=== PATIENT | male | born 1965 | race Caucasian/White ===

== ENCOUNTER 2017-09-26 20:46 | Inpatient (IN) | payer OTHER ==
[2017-09-26] MEDS ORDERED: ONDANSETRON HCL INJ/PF 4 MG/2 ML SDV IV ONE (22:21)
[2017-09-26] MEDS ORDERED: NORMAL SALINE 1000 ML 1,000 ML IV ONE (22:21)
--- NOTE | 2017-09-26 22:23 | ER Document Report ---
ED General - General Chief Complaint: Abdominal Pain Stated Complaint: ABDOMINAL PAIN Time Seen by Provider: 09/26/17 22:08 Notes: 52-year-old male with a history of total colectomy and permanent colostomy and history of anemia present with crampy abdominal pain "I think my capsule endoscopy is hung up" he is passing gas into his back but less than usual, and the capsule was swallowed on Wednesday. He normally passes the 3 Days Because He Has Had This before. He Denies Bleeding but Is Nauseous and Does Not Want to Eat. TRAVEL OUTSIDE OF THE [place] IN LAST 30 DAYS: No - Related Data Allergies/Adverse Reactions: codeine [Codeine] Adverse Reaction (Verified 01/24/15 17:51) Past Medical History - Social History Smoking Status: Never Smoker Family History: Reviewed & Not Pertinent Malignancy Medical History: Reports Hx Colorectal Cancer, Reports Hx Prostate Cancer Past Surgical History: Reports: Hx Rectal Surgery Review of Systems - Review of Systems Notes: REVIEW OF SYSTEMS GEN: Denies fever, chills, weight loss ENT: Denies sore throat, nasal discharge, ear pain EYES: Denies blurry vision, eye pain, discharge CV: Denies chest pain, palpitations, edema RESP: Denies cough, shortness of breath, wheezing GI: Hymenal pain MSK: Denies joint pain/swelling, edema, SKIN: Denies rash, skin lesions LYMPH: Denies swollen glands/lymph nodes NEURO: Denies headache, focal weakness or numbness, dizziness PSYCH: Denies depression, suicidal or homicidal ideation PHYSICAL EXAMINATION General: No acute distress, well-nourished Head: Atraumatic, normocephalic ENT: Mouth normal, oropharynx moist, no exudates or tonsillar enlargement Eyes: Conjunctiva normal, pupils equal, lids normal Neck: No JVD, supple, no guarding CVS: Normal rate, regular rhythm, no murmurs Resp: No resp distress, equal and normal breath sounds bilaterally GI: Nondistended, soft, to be healthy with stool output. Slightly firm with diffuse mild tenderness but no tympany. Bowel sounds present. Ext: No deformities, no edema, normal range of motion in upper and lower ext Back: No CVA or midline TTP Skin: No rash, warm Lymphatic: No lymphadeopathy noted Neuro: Awake, alert. Face symmetric. GCS 15. Physical Exam - Vital signs Vitals: Temp Pulse Resp BP Pulse Ox 97.5 F 89 28 H 180/83 H 98 09/26/17 21:17 09/26/17 21:17 09/26/17 21:17 09/26/17 21:17 09/26/17 21:17 Course - Re-evaluation Re-evalutation: 09/26/17 22:23 Patient presents with pain distention and anorexia and history of total colectomy in the context of having a pill endoscopy done. Differential includes obstruction or irritation, doubt perforation. We will get x-rays to start but will probably need CT. Labs and p.o. fluids were ordered. 09/27/17 00:48 X-ray concerning for small bowel obstruction. Patient was given pain control. He was reassessed at 12:40 AM and is still having pain. CT shows small bowel obstruction. No perfect. N.p.o. IV fluids, admitted, discussed with Dr. Santos. - Vital Signs Vital signs: Temp Pulse Resp BP Pulse Ox 97.5 F 89 28 H 180/83 H 98 09/26/17 21:17 09/26/17 21:17 09/26/17 21:17 09/26/17 21:17 09/26/17 21:17 - Laboratory Result Diagrams: 09/26/17 22:52 09/26/17 22:52 Laboratory results interpreted by me: 09/26/17 09/26/17 22:52 22:52 WBC 12.3 H RBC 4.06 L Hgb 13.0 L Seg Neuts % (Manual) 94 H Band Neutrophils % 1 L Lymphocytes % (Manual) 2 L Monocytes % (Manual) 2 L Abs Neuts (Manual) 11.7 H Abs Lymphs (Manual) 0.2 L Glucose 129 H - Diagnostic Test Radiology reviewed: Image reviewed, Reports reviewed Discharge - Discharge Clinical Impression: Small bowel obstruction Condition: Fair Disposition: ADMITTED INPATIENT Admitting Provider: Hospitalist
--- NOTE | 2017-09-26 22:47 | RADIOLOGY REPORT (SQ) ---
EXAM DESCRIPTION: ABDOMEN 2 VIEWS COMPLETED DATE/TIME: 09/26/2017 10:37 pm REASON FOR STUDY: capsule endo COMPARISON: None. NUMBER OF VIEWS: Two views. TECHNIQUE: Supine and erect/decubitus radiographic images of the abdomen acquired. LIMITATIONS: None. FINDINGS: FREE AIR: None. No abnormal gas collections. LUNG BASES: Clear. BOWEL GAS PATTERN: Mild small bowel dilation. CALCIFICATIONS: No suspicious calcifications. SOFT TISSUES: No gross mass or suggestion of organomegaly. HARDWARE: Surgical clips. Electronic capsule located in the left pelvic region. BONES: No acute fracture. No worrisome bone lesions. OTHER: No other significant finding. IMPRESSION: ELECTRONIC CAPSULE LOCATED IN THE LEFT PELVIC REGION. MILD SMALL BOWEL DILATION. TECHNICAL DOCUMENTATION: JOB ID: [id number] All Rights Reserved Reading location - IP/workstation name: [email or web address]
[2017-09-26 23:30] LABS: ANION GAP 8 (5-19); BLOOD UREA NITROGEN 12 mg/dL (7-20); CALCIUM 9.7 mg/dL (8.4-10.2); CARBON DIOXIDE 29 mmol/L (22-30); CHLORIDE 106 mmol/L (98-107); GLUCOSE 129 mg/dL (75-110)
[2017-09-26 23:42] LABS: MEAN CORPUSCULAR HEMOGLOBIN 31.9 pg (27.0-33.4); MEAN CORPUSCULAR HGB CONC 34.1 g/dL (32.0-36.0); MEAN CORPUSCULAR VOLUME 94 fl (80-97); PLATELET COUNT 223 10^3/uL (150-450); RED BLOOD COUNT 4.06 10^6/uL (4.35-5.55); RED CELL DISTRIBUTION WIDTH 12.1 % (11.5-14.0); WHITE BLOOD COUNT 12.3 10^3/uL (4.0-10.5)
[2017-09-27] LABS: ABSOLUTE LYMPHOCYTES# (MANUAL) 0.2 10^3/uL (0.5-4.7); ABSOLUTE MONOCYTES # (MANUAL) 0.2 10^3/uL (0.1-1.4); ABSOLUTE NEUTROPHILS# (MANUAL) 11.7 10^3/uL (1.7-8.2); BAND NEUTROPHILS % (MANUAL) 1 % (3-5); BASOPHILS % (MANUAL) 1 % (0-2); EOSINOPHILS % (MANUAL) 0 % (0-6); LYMPHOCYTES % (MANUAL) 2 % (13-45); MONOCYTES % (MANUAL) 2 % (3-13); PLATELET COMMENT ADEQUATE; RBC MORPHOLOGY COMMENT NORMO-CYTIC/CHROMIC; SEGMENTED NEUTROPHILS % (MAN) 94 % (42-78); TOTAL CELLS COUNTED 100; TOXIC GRANULATION SLIGHT; TOXIC VACUOLATION PRESENT
[2017-09-27] MEDS ORDERED: MORPHINE SULFATE 10 MG/ML INJ IV ONE ×2 (00:48→16:45)
--- NOTE | 2017-09-27 01:01 | RADIOLOGY REPORT (SQ) ---
EXAM DESCRIPTION: CT ABD/PELVIS WITH IV ONLY CLINICAL HISTORY: 52 years Male, SBO? COMPARISON: CR, 09/26/2017. TECHNIQUE: IV contrast. Coronal and sagittal reformat. This exam was performed according to our departmental dose-optimization program, which includes automated exposure control, adjustment of the mA and/or kV according to patient size and/or use of iterative reconstruction technique. FINDINGS: 2.9 cm dilated and stacked small bowel loops with air-fluid levels in the left paracentral abdomen. No focal zone of transition identified. Likely electronic capsule within small bowel loops at the level of the pelvis consistent with CR two hours prior. No free fluid. No free air. Indeterminate 2.2 cm lesion with possible vascularity of the right posterior lateral hepatic segment VII. 0.5 cm likely benign low attenuation left hepatic lesion. Small focal hepatic steatosis along the falciform ligament. Bowel ostomy site of the right pelvic wall. Surgical clips of the right paracentral abdomen. Mild disc desiccation. Inferior thorax, gallbladder, pancreas, spleen, adrenals, renal system, pelvic organs, lymphatics, vasculature, and musculoskeleton appear otherwise unremarkable. IMPRESSION: 1. A 2.9 cm diameter low grade small bowel obstruction or ileus. 2. Indeterminate 2.2 cm right hepatic lesion. Dynamic contrast MRI or CT of the liver recommended.
[2017-09-27] MEDS ORDERED: LIDOCAINE 2% JELLY 5 ML TUBE TOP ONE (01:15)
--- NOTE | 2017-09-27 01:38 | PDOC H&P ---
History of Present Illness Admission Date/PCP: 09/27/17 Patient complains of: abdomial pains with N/V History of Present Illness: PARAMJIT CARTY is a 52 year old male post total colectomy including rectum for Ca prostate. Done at [place] in 2012. Swallowed an endoscopy capsule for testing 8 hrs 2 days ago in [place]. Had same procedure done about a yr ago and took him 3 days to eliminate it via ileostomy.C/o severe abdominal pains with vomiting of undigested food today. Past Medical History Malignancy Medical History: Reports: Colorectal Cancer Malignancy History Note: prostate ca with adjacent mets to rectosigmoid Past Surgical History Past Surgical History: Reports: Other - total colectomy with excision of rectum in 2012 at [place] Social History Smoking Status: Former Smoker Frequency of Alcohol Use: None - stopped in 2004 Hx Recreational Drug Use: No Family History Family History: Reviewed & Not Pertinent Parental Family History Reviewed: Yes - mother had colon ca age 47 but age 81 Children Family History Reviewed: No Sibling(s) Family History Reviewed.: No Medication/Allergy Allergies/Adverse Reactions: codeine [Codeine] Adverse Reaction (Verified 01/24/15 17:51) Review of Systems Constitutional: PRESENT: other - no fver/chills Eyes: PRESENT: other - no visual/hearing problems Respiratory: PRESENT: other - nocough Gastrointestinal: PRESENT: abdominal pain, nausea, vomiting Genitourinary: PRESENT: other - has urethral stricture and self catheterizes once a week to dilate stricture Neurological: PRESENT: other - no seizures Endocrine: PRESENT: other - no polyuria Hematologic/Lymphatic: PRESENT: other - no easy bruising Physical Exam Vital Signs: Temp Pulse Resp BP Pulse Ox 97.5 F 89 28 H 180/83 H 98 09/26/17 21:17 09/26/17 21:17 09/26/17 21:17 09/26/17 21:17 09/26/17 21:17 Intake & Output 09/25/17 09/26/17 09/27/17 06:59 06:59 06:59 Output Total 300 Balance -300 Weight 86.3 kg General appearance: PRESENT: severe distress Head exam: PRESENT: atraumatic Eye exam: PRESENT: conjunctiva pink Mouth exam: PRESENT: moist Neck exam: PRESENT: full ROM Respiratory exam: PRESENT: clear to auscultation romie Cardiovascular exam: PRESENT: RRR Pulses: PRESENT: normal radial pulses Vascular exam: PRESENT: normal capillary refill GI/Abdominal exam: PRESENT: soft, tenderness - lower abdomen Rectal exam: PRESENT: other - has an ileostomy Extremities exam: PRESENT: full ROM Musculoskeletal exam: PRESENT: ambulatory Neurological exam: PRESENT: alert, oriented to person, oriented to place, oriented to time, oriented to situation Psychiatric exam: PRESENT: anxious Skin exam: PRESENT: normal color, warm Results Laboratory Results: 09/26/17 22:52 09/26/17 22:52 09/26/17 09/26/17 22:52 22:52 WBC 12.3 H RBC 4.06 L Hgb 13.0 L Hct 38.0 MCV 94 MCH 31.9 MCHC 34.1 RDW 12.1 Plt Count 223 Seg Neutrophils % Not Reportable Lymphocytes % Not Reportable Monocytes % Not Reportable Eosinophils % Not Reportable Basophils % Not Reportable Absolute Neutrophils Not Reportable Absolute Lymphocytes Not Reportable Absolute Monocytes Not Reportable Absolute Eosinophils Not Reportable Absolute Basophils Not Reportable Sodium 143.0 Potassium 4.0 Chloride 106 Carbon Dioxide 29 Anion Gap 8 BUN 12 Creatinine 0.72 Est GFR ( Amer) > 60 Est GFR (Non-Af Amer) > 60 Glucose 129 H Calcium 9.7 Impressions: Abdomen X-Ray 09/26/17 22:10 IMPRESSION: ELECTRONIC CAPSULE LOCATED IN THE LEFT PELVIC REGION. MILD SMALL BOWEL DILATION. Abdomen/Pelvis CT 09/26/17 23:12 IMPRESSION: 1. A 2.9 cm diameter low grade small bowel obstruction or ileus. 2. Indeterminate 2.2 cm right hepatic lesion. Dynamic contrast MRI or CT of the liver recommended. Assessment & Plan - Diagnosis (1) Partial SBO due to endoscopic capsule Is this a current diagnosis for this admission?: Yes - Time Time Spent: 30 to 50 Minutes - Inpatient Certification Medical Necessity: Need For IV Fluids, Need for Pain Control, Risk of Complication if Not Cared For in Hospital, Risk of Diagnosis Which Will Require Inpatient Eval/Care/Monitoring - Plan Summary Plan Summary: Will need watcful waiting and if develops definite peritoneal signs then will need ex lap to remove capsule. Keep npo pain mx
[2017-09-27] MEDS ORDERED: NORMAL SALINE 500 ML IV ONE (02:51)
[2017-09-27] MEDS: MORPHINE SULFATE 10 MG/ML INJ IV PRN ×3 (05:40→13:45)
[2017-09-27 06:58] LABS: ABSOLUTE LYMPHOCYTES (AUTO) 0.7 10^3/uL (0.5-4.7); ABSOLUTE MONOCYTES (AUTO) 0.4 10^3/uL (0.1-1.4); BASOPHILS % (AUTO) 0.2 % (0-2); EOSINOPHILS % (AUTO) 0.6 % (0-6); HEMATOCRIT 36.4 % (37.9-51.0); HEMOGLOBIN 12.6 g/dL (13.5-17.0); LYMPHOCYTES % (AUTO) 11.2 % (13-45); MEAN CORPUSCULAR HEMOGLOBIN 32.4 pg (27.0-33.4); MEAN CORPUSCULAR HGB CONC 34.7 g/dL (32.0-36.0); MEAN CORPUSCULAR VOLUME 93 fl (80-97); MONOCYTES % (AUTO) 6.5 % (3-13); PLATELET COUNT 204 10^3/uL (150-450); RED CELL DISTRIBUTION WIDTH 12.4 % (11.5-14.0); SEGMENTED NEUTROPHILS % (AUTO) 81.5 % (42-78); TOTAL CELLS COUNTED % (AUTO) 100 %; WHITE BLOOD COUNT 6.2 10^3/uL (4.0-10.5)
[2017-09-27] MEDS: DEXTROSE 5%-LACTATED RINGERS 1,000 ML IV PRN ×2 (11:00→17:35)
[2017-09-27] MEDS: KETOROLAC TROMETHAMINE INJ/PF 30 MG/1 ML SDV IV PRN (21:58)
[2017-09-27] MEDS: METOPROLOL TARTRATE 25 MG TABLET PO SCH (22:00)
[2017-09-28] MEDS: DOXAZOSIN MESYLATE 4 MG TABLET PO SCH ×3 (00:38→22:40)
[2017-09-28] MEDS: KETOROLAC TROMETHAMINE INJ/PF 30 MG/1 ML SDV IV PRN ×4 (04:10→22:39)
[2017-09-28] MEDS: DEXTROSE 5%-LACTATED RINGERS 1,000 ML IV PRN ×2 (06:00→20:08)
[2017-09-28 06:03] LABS: ABSOLUTE EOSINOPHILS # (AUTO) 0.1 10^3/uL (0.0-0.6); ABSOLUTE LYMPHOCYTES (AUTO) 0.9 10^3/uL (0.5-4.7); ABSOLUTE MONOCYTES (AUTO) 0.5 10^3/uL (0.1-1.4); ABSOLUTE NEUT (AUTO) 2.4 10^3/uL (1.7-8.2); BASOPHILS % (AUTO) 0.2 % (0-2); EOSINOPHILS % (AUTO) 2.8 % (0-6); HEMATOCRIT 32.9 % (37.9-51.0); HEMOGLOBIN 11.4 g/dL (13.5-17.0); LYMPHOCYTES % (AUTO) 23.2 % (13-45); MEAN CORPUSCULAR HEMOGLOBIN 32.6 pg (27.0-33.4); MEAN CORPUSCULAR HGB CONC 34.6 g/dL (32.0-36.0); MEAN CORPUSCULAR VOLUME 94 fl (80-97); MONOCYTES % (AUTO) 13.8 % (3-13); PLATELET COUNT 180 10^3/uL (150-450); RED CELL DISTRIBUTION WIDTH 12.2 % (11.5-14.0); TOTAL CELLS COUNTED % (AUTO) 100 %; WHITE BLOOD COUNT 3.9 10^3/uL (4.0-10.5)
[2017-09-28 06:21] LABS: ANION GAP 10 (5-19); BLOOD UREA NITROGEN 11 mg/dL (7-20); CARBON DIOXIDE 29 mmol/L (22-30); CHLORIDE 105 mmol/L (98-107); GLUCOSE 116 mg/dL (75-110); SODIUM 143.9 mmol/L (137-145)
[2017-09-28] MEDS: METOPROLOL TARTRATE 25 MG TABLET PO SCH (09:44)
--- NOTE | 2017-09-28 17:39 | PDOC PROGRESS REPORT ---
Subjective Progress Note for:: 09/28/17 Subjective:: lower abdominal pains Reason For Visit: PARTIAL SMALL BOWEL OBSTRUCTION DUE TO FOREIGN Physical Exam Vital Signs: Temp Pulse Resp BP Pulse Ox 98.4 F 63 12 129/57 H 97 09/28/17 16:38 09/28/17 16:38 09/28/17 16:38 09/28/17 16:38 09/28/17 16:38 Intake & Output 09/27/17 09/28/17 09/29/17 06:59 06:59 06:59 Intake Total 1910 1252 Output Total 400 1400 Balance -358 217 1007 Weight 83 kg Exam: NGT 300ccs from last night Ileostomy functioning, did pass capsule through ileostomy yesterday Results Laboratory Results: 09/28/17 05:11 09/28/17 05:11 09/28/17 09/28/17 05:11 05:11 WBC 3.9 L RBC 3.50 L Hgb 11.4 L Hct 32.9 L MCV 94 MCH 32.6 MCHC 34.6 RDW 12.2 Plt Count 180 Seg Neutrophils % 60.0 Lymphocytes % 23.2 Monocytes % 13.8 H Eosinophils % 2.8 Basophils % 0.2 Absolute Neutrophils 2.4 Absolute Lymphocytes 0.9 Absolute Monocytes 0.5 Absolute Eosinophils 0.1 Absolute Basophils 0.0 Sodium 143.9 Potassium 4.0 Chloride 105 Carbon Dioxide 29 Anion Gap 10 BUN 11 Creatinine 0.76 Est GFR ( Amer) > 60 Est GFR (Non-Af Amer) > 60 Glucose 116 H Calcium 9.0 Impressions: Abdomen X-Ray 09/26/17 22:10 IMPRESSION: ELECTRONIC CAPSULE LOCATED IN THE LEFT PELVIC REGION. MILD SMALL BOWEL DILATION. Abdomen/Pelvis CT 09/26/17 23:12 IMPRESSION: 1. A 2.9 cm diameter low grade small bowel obstruction or ileus. 2. Indeterminate 2.2 cm right hepatic lesion. Dynamic contrast MRI or CT of the liver recommended. Assessment & Plan - Diagnosis (1) Partial SBO due to endoscopic capsule Is this a current diagnosis for this admission?: Yes - Time Time Spent with patient: 15-24 minutes - Plan Summary Plan Summary: D/C NGT Start clears today Continue IV Fluids until tolerating enough PO liquids
[2017-09-29] MEDS: METOPROLOL TARTRATE 25 MG TABLET PO SCH ×2 (01:33→09:37)
[2017-09-29] MEDS: DEXTROSE 5%-LACTATED RINGERS 1,000 ML IV PRN (01:51)
[2017-09-29] MEDS: KETOROLAC TROMETHAMINE INJ/PF 30 MG/1 ML SDV IV PRN (08:24)
[2017-09-29] MEDS: DOXAZOSIN MESYLATE 4 MG TABLET PO SCH (09:33)
[2017-09-29 12:36] VITALS: BP 137/63
--- NOTE | 2017-09-30 21:44 | DISCHARGE SUMMARY E ---
Discharge Summary NAME: PARAMJIT CARTY : 1965 AGE: 52Y ADMITTED: 09/27/2017 DISCHARGED: 09/29/2017 FINAL DIAGNOSIS: Partial small bowel obstruction due to a foreign body. Postop diagnosis resolution of partial obstruction of small bowel with elimination of foreign body (endoscopic capsule). HOSPITAL COURSE: This is a 52-year-old male post total colectomy including proctectomy for CA prostate with mets to the colon which was done at [place] in 2012. He had 1 episode of swallowing an endoscopic capsule about a year ago and had some partial blockage but eventually eliminated the capsule through the ileostomy after 3 days. The same thing happened this time when he swallowed another endoscopic capsule and tested in the clinic in [place] for 8 hours in the past 2 days. He was then discharged. However, complained of pains on 09/26/17 with some nausea and subsequently went to the Emergency Room where he had an x-ray of the abdomen which showed the capsule right in the area of the pelvis. Patient was then admitted and kept n.p.o. and the capsule eventually eliminated through the ileostomy on 09/28/17. Patient had an NG tube and this was then disconnected on 09/29/17 and started on clear liquids and tolerating soft diet in the afternoon. He was then discharged improved on 09/29/17. He was advised to follow up with the [facility]. DICTATING PHYSICIAN: STEPHANIE HO M.D. [id number] PHY#: [id number] ID: [id number] JOB#: [id number] ACCT: [id number] cc:STEPHANIE HO M.D. > MTDVu
== END 2017-09-29 14:37 | disposition home or self-care (01) | DRG 389 ==
LOC: ER 20:46 → EH 09-27 01:49 → 4S 09-27 16:09
PROVIDERS: ADMIT Surgery; ATTEND Surgery
DX: K91.31 Postprocedural partial intestinal obstruction (principal); C78.5 Secondary malignant neoplasm of large intestine and rectum; T18.3XXA Foreign body in small intestine, initial encounter; R63.0 Anorexia; C61 Malignant neoplasm of prostate; N35.9 Urethral stricture, unspecified; Y84.8 Other medical procedures as the cause of abnormal reaction of the patient, or of later complication, without mention of misadventure at the time of the procedure; Z93.2 Ileostomy status; Z68.29 Body mass index [BMI] 29.0-29.9, adult; Z90.49 Acquired absence of other specified parts of digestive tract; Z87.891 Personal history of nicotine dependence
CPT/HCPCS: 36415; 74019; 74177; 80048; 85025; 96361; 96374; 96375; 99285; J1885; J2270; J2405; J7030; J7040

== ENCOUNTER 2020-01-15 07:58 | Emergency (ER) | payer OTHER, MEDICARE ==
[2020-01-15 08:06] VITALS: BP 126/63
--- NOTE | 2020-01-15 08:42 | ER Document Report ---
ED General - General Chief Complaint: Urinary Problem Stated Complaint: URINARY ISSUE [facility] [[facility]] - Follow up as needed Notes: Patient is a 54-year-old white male with a history of radiation exposure due to colorectal cancer who is status post total colectomy with a colostomy in place and subsequently had mets to the prostate with partial prostate removal and a history of urethral stricture who presents to the emergency department the chief complaint of urinary retention. Patient states over the past few days when he is been self cathing at home he is noticed some sediment in the urine. He states he was concerned for possible infectious process. Called his doctor's office and asked if he could leave a sample for evaluation. They stated that they would schedule him for an upcoming appointment. He states he is not seen them yet and it is getting worse. He describes pain with urination, passage of some smaller blood clots and difficulty passing the catheter. He states last night at 1030 he was able to get some urine out by forcefully trying to urinate and passing the catheter but states that since that time he has been unable to successfully pass a catheter. He admits to bladder fullness and discomfort. Denies any fever chills or night sweats. Denies any overt abdominal pain or back pain. TRAVEL OUTSIDE OF THE [place] IN LAST 30 DAYS: No - Related Data Allergies/Adverse Reactions: codeine [Codeine] Adverse Reaction (Verified 01/15/20 08:08) Home Medications: metoprolol. terazonin Past Medical History - Social History Smoking Status: Former Smoker Chew tobacco use (# tins/day): No Frequency of alcohol use: None Drug Abuse: None Family History: Reviewed & Not Pertinent Patient has homicidal ideation: No Renal/ Medical History: Denies: Hx Peritoneal Dialysis Malignancy Medical History: Reports Hx Colorectal Cancer, Reports Hx Prostate Cancer Past Surgical History: Reports: Hx Rectal Surgery, Other - total colectomy with excision of rectum in 2013 at [place] Review of Systems - Review of Systems Constitutional: denies: Fever EENT: denies: Difficulty swallowing Cardiovascular: denies: Chest pain Respiratory: denies: Short of breath Gastrointestinal: denies: Abdominal pain Genitourinary: Burning, Dysuria, Discharge, Pain Male Genitourinary: denies: Testicular pain Musculoskeletal: denies: Muscle stiffness Skin: denies: Change in color Hematologic/Lymphatic: denies: Easy bleeding Neurological/Psychological: denies: Headaches Physical Exam - Vital signs Vitals: Temp Pulse Resp BP Pulse Ox 98.4 F 74 18 126/63 H 98 01/15/20 08:05 01/15/20 08:05 01/15/20 08:05 01/15/20 08:05 01/15/20 08:05 - General General appearance: Appears well, Alert In distress: None - Respiratory Respiratory status: No respiratory distress Chest status: Nontender Breath sounds: Normal Chest palpation: Normal - Cardiovascular Rhythm: Regular Heart sounds: Normal auscultation - Abdominal Inspection: Normal Distension: No distension Bowel sounds: Normal Tenderness: Tender - Suprapubic Organomegaly: No organomegaly Notes: Colostomy bag right lower quadrant - Genitourinary Inspection: Normal Tenderness: Nontender - Prepubic with fullness Cremasteric reflex: Normal Scrotum: Normal - Back Back: No: CVA tenderness - Neurological Neuro grossly intact: Yes Cognition: Normal Orientation: AAOx4 - Psychological Associated symptoms: Normal affect, Normal mood - Skin Skin Temperature: Warm Skin Moisture: Dry Skin Color: Normal Course - Re-evaluation Re-evalutation: 01/15/20 11:32 Patient unable to pass an 18 Argentine himself. Coud was tried. There was no success. Nurses attempted three-way catheter and were able to break through the for stricture but could not get past the second. Dr. Chatman this attempted as well to bypass the second stricture but could not. Ultrasound showing a moderately full bladder. Dr. Thrasher called and spoke with general surgeon, Dr. Ordoñez who will come to the ED and perform suprapubic catheterization. 01/15/20 14:08 Dr. Ordoñez to bedside, evaluated the patient and felt like there was a loop of small bowel in the way of the bladder given the patient's extensive bowel surgeries and he could not safely pass a suprapubic catheter recommended transfer. I spoke with Dr. June, urologist at [facility]. He advised they will accept the patient for transfer to their facility. Patient is currently stable at this time. He is requesting medications for his bladder spasms. Per consultation with Dr. Thrasher, we will give the patient belladonna. Patient is stable for transfer at this time. - Vital Signs Vital signs: Temp Pulse Resp BP Pulse Ox 98.4 F 74 18 126/63 H 98 01/15/20 08:09 01/15/20 08:05 01/15/20 08:05 01/15/20 08:05 01/15/20 08:05 - Laboratory Laboratory results interpreted by me: 01/15/20 09:29 Urine Protein 100 H Urine Blood LARGE H Ur Leukocyte Esterase LARGE H Urine Ascorbic Acid 20 H Discharge - Discharge Clinical Impression: Acute urethral obstruction, Urine retention Urethral stricture Qualifiers: Urethral stricture type: unspecified stricture type Urethral stricture sex- location: male urethra-unspecified Qualified Code(s): N35.919 - Unspecified urethral stricture, male, unspecified site Condition: Serious Disposition: [facility] Admitting Provider: Dr. June [facility]errals: [facility] [Primary [facility]] - Follow up as needed
[2020-01-15 09:55] LABS: APPEARANCE,URINE CLOUDY; BILIRUBIN,URINE NEGATIVE (NEGATIVE); COLOR,URINE YELLOW; GLUCOSE, URINE NEGATIVE (NEGATIVE); KETONES,URINE NEGATIVE (NEGATIVE); LEUKOCYTE ESTERASE,URINE LARGE (NEGATIVE); NITRITE,URINE NEGATIVE (NEGATIVE); PROTEIN,URINE 100 mg/dL (NEGATIVE); URINE SPECIFIC GRAVITY 1.016; UROBILINOGEN,URINE NEGATIVE mg/dL (<2.0)
[2020-01-15] MEDS ORDERED: LIDOCAINE 2% URO-JET 5 ML KIT MM ONE (10:03)
[2020-01-15] MEDS ORDERED: MORPHINE SULFATE 10 MG/ML INJ IM ONE (11:12)
[2020-01-15] MEDS ORDERED: LIDOCAINE 2% INJ (20 MG/ML) 20 ML MDV INJ ONE (11:25)
[2020-01-15] MEDS ORDERED: LIDOCAINE 1% INJ-PF (10 MG/ML) 30 ML SDV ONE (11:25)
[2020-01-15] MEDS ORDERED: CEFTRIAXONE INJ 1000 MG VIAL IM ONE (12:45)
[2020-01-15] MEDS ORDERED: CEFTRIAXONE 1 GM/D5W RTU 1 GM/50 ML RTUPB IV ONE (14:00)
[2020-01-15] MEDS ORDERED: OPIUM/BELLADONNA ALKALOIDS 30-16.2 MG SUPP.RECT PR ONE (14:04)
[2020-01-15 14:15] LABS: ABSOLUTE EOSINOPHILS # (AUTO) 0.1 10^3/uL (0.0-0.6); ABSOLUTE LYMPHOCYTES (AUTO) 1.2 10^3/uL (0.5-4.7); ABSOLUTE MONOCYTES (AUTO) 0.4 10^3/uL (0.1-1.4); ABSOLUTE NEUT (AUTO) 4.2 10^3/uL (1.7-8.2); BASOPHILS % (AUTO) 0.8 % (0-2); HEMATOCRIT 36.5 % (37.9-51.0); HEMOGLOBIN 12.6 g/dL (13.5-17.0); LYMPHOCYTES % (AUTO) 20.4 % (13-45); MEAN CORPUSCULAR HEMOGLOBIN 32.9 pg (27.0-33.4); MEAN CORPUSCULAR HGB CONC 34.6 g/dL (32.0-36.0); MEAN CORPUSCULAR VOLUME 95 fl (80-97); MONOCYTES % (AUTO) 7.2 % (3-13); PLATELET COUNT 224 10^3/uL (150-450); RED BLOOD COUNT 3.84 10^6/uL (4.35-5.55); RED CELL DISTRIBUTION WIDTH 12.7 % (11.5-14.0); SEGMENTED NEUTROPHILS % (AUTO) 69.6 % (42-78); TOTAL CELLS COUNTED % (AUTO) 100 %
[2020-01-15] MEDS ORDERED: MORPHINE SULFATE 10 MG/ML INJ IV ONE (14:23)
--- NOTE | 2020-01-15 14:25 | Operative Report ---
Operative Report DATE OF SURGERY: 01/15/20 PREOPERATIVE DIAGNOSIS: 1. Urinary retention. 2. History of urethral strictu res. 3. History of abdominal perineal resection, complete colectomy and permanent ileostomy. 4. History of partial prostatectomy, pelvic radiation POSTOPERATIVE DIAGNOSIS: Same OPERATION: Focused ultrasound of the pelvis SURGEON: KISHA ORDOÑEZ ANESTHESIA: Other - None TISSUE REMOVED OR ALTERED: None COMPLICATIONS: None ESTIMATED BLOOD LOSS: None INTRAOPERATIVE FINDINGS: See below PROCEDURE: Indication for procedure. The patient 54-year-old white male with history of double abdominal surgeries including exploratory laparotomy, right hemicolectomy, completion colectomy, ileostomy and abdominal perineal resection, partial prostatectomy, radiation and chemotherapy for metastatic colon and rectal cancer between 1999November 2012. Patient a urethral strictures, self catheterizes. Last catheterized this morning, with incomplete evacuation of the bladder. He uses a 18 Swedish coud catheter. In the emergency department the patient presented and had several attempts at catheter insertion by multiple staff members without success. Surgery was consulted because there is no urologist available application security developer. Bedside ultrasonography was performed by Dr. Ordoñez Variable frequency linear transducer was used to scan the abdominal wall. Findings are significant for ileostomy right lower quadrant, scar in the midline. The bladder dome was then divided approximately 5 cm from the skin surface in the lower pelvis. Of Note there were mixed echogenic angles between the dome of the bladder and the tibial side of the anterior abdominal wall, with motion, suggesting intervening loop of small bowel. Because of the findings of a minimal to moderately distended bladder, marked distance between the anterior abdominal wall and the bladder dome, history of previous surgery, and radiation therapy, as well as what appears to be a loop of small bowel between the anterior abdominal wall and the dome of the bladder, I felt that an attempt at percutaneous bladder drainage still advised to. This was discussed with Dr. Jeremiah Godoy. Patient has a urologist in [facility] and [facility]; I suggested the patient be transferred to [facility] where he can be evaluated and treated by a urologist who is geographically closer.
[2020-01-15 14:34] LABS: ALBUMIN 4.3 g/dL (3.5-5.0); ALKALINE PHOSPHATASE 60 U/L (38-126); ANION GAP 8 (5-19); ASPARTATE AMINO TRANSFERASE 21 U/L (17-59); BILIRUBIN,TOTAL 0.6 mg/dL (0.2-1.3); BLOOD UREA NITROGEN 9 mg/dL (7-20); CALCIUM 9.4 mg/dL (8.4-10.2); CARBON DIOXIDE 26 mmol/L (22-30); CHLORIDE 105 mmol/L (98-107); GLUCOSE 102 mg/dL (75-110); POTASSIUM 4.3 mmol/L (3.6-5.0); TOTAL PROTEIN 7.8 g/dL (6.3-8.2)
== END 2020-01-15 15:37 | disposition short-term general hospital (02) ==
LOC: ER 07:58
DX: N36.8 Other specified disorders of urethra (principal); N35.919 Unspecified urethral stricture, male, unspecified site; R33.9 Retention of urine, unspecified; C19 Malignant neoplasm of rectosigmoid junction; C79.82 Secondary malignant neoplasm of genital organs; Z87.891 Personal history of nicotine dependence; Z79.899 Other long term (current) drug therapy; Z88.8 Allergy status to other drugs, medicaments and biological substances; Z93.3 Colostomy status; Z93.2 Ileostomy status; Z92.3 Personal history of irradiation
CPT/HCPCS: 99285; 96372; 96365; 36415; 87086; 85025; 80053; 81001; J2270; J0696; J3490; 87088; 87186